=== PATIENT | female | born 1940 | race Two or more races ===

== ENCOUNTER 2018-04-25 09:15 | Outpatient (CLI) | payer OTHER ==
[~2018-04-25] VITALS: Ht 157.5 cm; Wt 45.8 kg
== END 2018-04-25 09:30 | disposition home or self-care (01) ==
LOC: OFIC 805 09:15
DX: R07.0 Pain in throat (principal); M62.838 Other muscle spasm; K21.0 Gastro-esophageal reflux disease with esophagitis

== ENCOUNTER 2018-05-23 10:03 | Outpatient (CLI) | payer OTHER | END 2018-05-23 10:16 | disposition home or self-care (01) | LOC: TOM 10:03 | DX: R22.1 Localized swelling, mass and lump, neck (principal); R22.0 Localized swelling, mass and lump, head ==

== ENCOUNTER 2018-06-20 11:49 | Outpatient (CLI) | payer OTHER ==
[~2018-06-20] VITALS: Ht 152.4 cm; Wt 45.8 kg
== END 2018-06-20 12:10 | disposition home or self-care (01) ==
LOC: OFIC 805 11:49
DX: K21.0 Gastro-esophageal reflux disease with esophagitis (principal); R07.0 Pain in throat; M62.838 Other muscle spasm